=== PATIENT | female | born 1950 | race Two or more races ===

== ENCOUNTER 2021-01-17 06:08 | Inpatient (IN) | payer OTHER ==
[~2021-01-17] VITALS: Ht 162.6 cm; Wt 104.9 kg
[2021-01-17] VITALS (15 sets, daily range): BP systolic 104–132; BP diastolic 60–80
[~2021-01-17 06:08] MED LIST: ATOR40TA52 PO; LISI-716 PO; VENL150C58 PO
[2021-01-17] MEDS ORDERED: BUPIVACAINE 0.25% INJ 50ML VIAL ONE (06:44)
[2021-01-17] MEDS ORDERED: TRANEXAMIC ACID 20 ML ONE (06:44)
[2021-01-17] MEDS ORDERED: VANCOMYCIN HCL 1000 MG VL ONE (06:46)
[2021-01-17] MEDS ORDERED: EPINEPHrine HCL 1 MG/1 ML AMP ONE (06:46)
[2021-01-17] MEDS ORDERED: TETRACAINE 1% INJ 2 ML VIAL IJ ONE (07:01)
[2021-01-17] MEDS ORDERED: ceFAZolin 1GM/50ML 100 ML IV ONE (07:05)
[2021-01-17] MEDS ORDERED: MORPHINE SULF(PF) 0.5MG/ML 10ML VIAL ONE (07:28)
[2021-01-17] MEDS ORDERED: MIDAZOLAM HCL 1MG/1ML-2 ML VIAL ONE (07:28)
[2021-01-17] MEDS ORDERED: fentaNYL CITRATE 100 MCG/2 ML VL ONE (07:28)
[2021-01-17] MEDS ORDERED: PROPOFOL 10 MG/ML 20 ML IV ONE (07:44)
[2021-01-17] MEDS ORDERED: DexAMETHasone SOD PHOS 10MG/1ML VIAL INJ ONE (07:44)
[2021-01-17] MEDS ORDERED: NALBUPHINE HCL 10 MG/1ml INJECTION SUBCUT ONE (08:15)
[2021-01-17] MEDS ORDERED: ONDANSETRON HCL 4 MG/2 ML VIAL IV PRN (08:15)
[2021-01-17] MEDS ORDERED: NALOXONE HCL 0.4 MG/ML VIAL IV PRN (08:15)
[2021-01-17] MEDS ORDERED: LABETALOL HCL 5 MG/ML 4ML SYRINGE IV PRN (08:15)
[2021-01-17] MEDS ORDERED: KETOROLAC TROMETH 30 MG/ML 1ML VIAL IV PRN ×2 (08:15→10:00)
[2021-01-17] MEDS ORDERED: ePHEDrine SULFATE 50 MG/ML AMP IV PRN (08:15)
[2021-01-17] MEDS ORDERED: hydrALAZINE HCL 20 MG/ML VL IV PRN (08:15)
[2021-01-17] MEDS ORDERED: diphenhdrAMINE HCL 50 MG/1 ML VL IV PRN (08:15)
[2021-01-17] MEDS ORDERED: MIDAZOLAM HCL 1MG/1ML-2 ML VIAL IV PRN (08:15)
[2021-01-17] MEDS ORDERED: HYDROmorphone HCL 2 MG/ML VL IV PRN ×2 (08:15→09:45)
[2021-01-17] MEDS ORDERED: DexAMETHasone SOD PHOS 10MG/1ML VIAL INJ IV PRN (08:15)
[2021-01-17] MEDS ORDERED: PHENYLEPHRINE HCL 10 MG/ML VL ONE (08:26)
[2021-01-17] MEDS ORDERED: NITROGLYCERIN 0.4 MG SL TAB SL PRN (09:45)
[2021-01-17] MEDS ORDERED: MORPHINE SULF INJ 2 MG/ML SYRINGE 1ML IV PRN (09:45)
[2021-01-17] MEDS ORDERED: VENL150C58 PO (09:55)
[2021-01-17] MEDS ORDERED: ATOR40TA52 PO (09:55)
[2021-01-17] MEDS ORDERED: LISI-716 PO (09:55)
[2021-01-17] MEDS ORDERED: PATIENTS OWN MEDICATION (Venlafaxine Hcl (Venlafaxine Hcl Er) 1 CAP) PO SCH (10:00)
[2021-01-17] MEDS ORDERED: PATIENTS OWN MEDICATION (Atorvastatin Calcium 1 TAB) PO SCH (10:00)
[2021-01-17] MEDS ORDERED: KETOROLAC TROMETH 30 MG/ML 1ML VIAL IV SCH (12:00)
[2021-01-17] MEDS: LISINOPRIL 10 MG TAB PO SCH (16:06)
[2021-01-17] MEDS: ACETAMINOPHEN 325 MG TAB PO SCH ×2 (16:07→16:22)
[2021-01-17] MEDS: PREGABALIN 25 MG CAP PO SCH ×2 (16:07→21:58)
[2021-01-17] MEDS: ASPirin 81 mg TAB PO SCH ×2 (16:08→21:58)
[2021-01-17] MEDS: oxyCODONE HCL 5MG TAB PO PRN ×2 (16:24→22:51)
[2021-01-17] MEDS: ceFAZolin 1GM 2 GM in D5W 5% 100 ML IV SCH ×2 (16:56→22:51)
[2021-01-17] MEDS: D5W/LACTATED RINGERS 1,000 ML IV SCH ×2 (19:45→21:58)
[2021-01-17] MEDS: ATORVASTATIN 20 MG TAB PO SCH (21:58)
[2021-01-18] VITALS (14 sets, daily range): BP systolic 100–132; BP diastolic 53–81
[2021-01-18] MEDS: ACETAMINOPHEN 325 MG TAB PO SCH ×4 (00:13→17:34)
[2021-01-18] MEDS: oxyCODONE HCL 5MG TAB PO PRN ×2 (03:44→20:48)
[2021-01-18] MEDS: D5W/LACTATED RINGERS 1,000 ML IV SCH ×2 (05:45→16:00)
[2021-01-18] MEDS: PREGABALIN 25 MG CAP PO SCH ×2 (09:57→21:23)
[2021-01-18] MEDS: ASPirin 81 mg TAB PO SCH ×2 (09:57→21:23)
[2021-01-18] MEDS: VENLAFAXINE HCL 37.5mg XR cap PO SCH (09:57)
[2021-01-18] MEDS: LISINOPRIL 10 MG TAB PO SCH (09:58)
[2021-01-18 10:37] LABS: Basophils # (auto) 0.1 10 ^3/uL (0-0.2); Basophils % (auto) 0.4 % (0.0-2.0); Eosinophils # (auto) 0 10 ^3/uL (0-0.8); Hematocrit 34.9 % (36.0-46.0); Hemoglobin 11.5 g/dL (12.2-16.2); Lymphocytes # (auto) 1.8 10 ^3/uL (0.4-5.4); Lymphocytes % (auto) 12.2 % (10.0-50.0); Mean Corpuscular Hemoglobin 29.4 pg (28.0-32.0); Mean Corpuscular Hgb Conc. 32.8 g/dL (32.0-36.0); Mean Corpuscular Volume 89.7 fL (80.0-100.0); Monocytes # (auto) 1.1 10 ^3/uL (0-1.3); Monocytes % (auto) 7.6 % (0.0-12.0); Neutrophils # (auto) 11.4 10 ^3/uL (1.6-8.6); Neutrophils % (auto) 79.8 % (37.0-80.0); Nucleated Red Blood Cells % 0.1 %; Platelet Count (auto) 229 10^3/uL (140-450); Red Blood Cells 3.89 10^6/uL (4.0-5.20); Red Cell Distribution Width 13.8 % (11.8-14.3); White Blood Cell 14.3 10^3/uL (4.4-10.8)
[2021-01-18 11:01] LABS: BUN/Creatinine Ratio 18.9; Calcium 8.4 mg/dL (8.5-10.1); Potassium 4.2 mmol/L (3.5-5.1)
[2021-01-18] MEDS: KETOROLAC TROMETH 30 MG/ML 1ML VIAL IV SCH ×2 (12:00→18:00)
[2021-01-18] MEDS: ATORVASTATIN 20 MG TAB PO SCH (21:23)
[2021-01-19] MEDS: ACETAMINOPHEN 325 MG TAB PO SCH ×3 (00:26→12:00)
[2021-01-19] MEDS: KETOROLAC TROMETH 30 MG/ML 1ML VIAL IV SCH ×3 (00:26→12:00)
[2021-01-19] MEDS: D5W/LACTATED RINGERS 1,000 ML IV SCH ×2 (01:45→11:45)
[2021-01-19 05:00] VITALS: BP 113/51
[2021-01-19 09:00] VITALS: BP 108/58
[2021-01-19] MEDS: LISINOPRIL 10 MG TAB PO SCH (09:45)
[2021-01-19] MEDS: ASPirin 81 mg TAB PO SCH (09:45)
[2021-01-19] MEDS: VENLAFAXINE HCL 37.5mg XR cap PO SCH (09:45)
[2021-01-19] MEDS: PREGABALIN 25 MG CAP PO SCH (09:46)
[2021-01-19 13:00] VITALS: BP 123/65
[2021-01-19] MEDS: oxyCODONE HCL 5MG TAB PO PRN (13:20)
== END 2021-01-19 17:15 | disposition home or self-care (01) | DRG 470 ==
LOC: OVERFLOW 06:08 → UNDOADMIN 06:08 → EDSTATUS 07:00 → OVERFLOW 09:42 → TELE-WESTW 11:26
PROVIDERS: ADMIT Orthopaedic Surgery; ATTEND Orthopaedic Surgery
PROC: 0SRD069 Replacement of Left Knee Joint with Oxidized Zirconium on Polyethylene Synthetic Substitute, Cemented, Open Approach (ICD-10-PCS; principal; 2021-01-17 07:24)
DX: M17.12 Unilateral primary osteoarthritis, left knee (principal); D62 Acute posthemorrhagic anemia; I10 Essential (primary) hypertension; E66.9 Obesity, unspecified; F32.9 Major depressive disorder, single episode, unspecified; Z68.39 Body mass index [BMI] 39.0-39.9, adult; Z90.49 Acquired absence of other specified parts of digestive tract; Z20.822 Contact with and (suspected) exposure to COVID-19
CPT/HCPCS: 36415; 73562; 80048; 85025; 86850; 86900; 86901; G0378; J0171; J0690; J1100; J1885; J2250; J2704; J3490; J7060